=== PATIENT | female | born 2005 | race Caucasian/White ===

== ENCOUNTER 2023-04-18 15:07 | Emergency (ER) | payer MEDICAID ==
[~2023-04-18] VITALS: Ht 167.6 cm; Wt 68.0 kg
[2023-04-18 15:18] VITALS: BP 120/71; TEMP 97.6
[2023-04-18 17:37] LABS: PREGNANCY TEST URINE QUAL POSITIVE (NEGATIVE)
[2023-04-18 18:33] VITALS: O2SAT 99
== END 2023-04-18 18:34 | disposition home or self-care (01) ==
LOC: ER 15:09
DX: O26.891 Other specified pregnancy related conditions, first trimester (principal); M54.2 Cervicalgia; M54.50 Low back pain, unspecified; R10.2 Pelvic and perineal pain; V49.9XXA Car occupant (driver) (passenger) injured in unspecified traffic accident, initial encounter; Y93.89 Activity, other specified; Y92.89 Other specified places as the place of occurrence of the external cause; Y99.8 Other external cause status; Z3A.10 10 weeks gestation of pregnancy
CPT/HCPCS: 76805-TC; 84703-TC